=== PATIENT | male | born 1970 | race Caucasian/White ===

== ENCOUNTER → 2019-06-01 07:59 | Outpatient (CLI) | payer OTHER, SELFPAY ==
--- NOTE | 2019-06-01 | DI.MRI.S_ITS ---
PROCEDURE: MR KNEE LT W CON INDICATIONS: Unspecified internal derangement of left knee TECHNIQUE: After the administration of 50 mL of dilute intra-articular Gadolinium contrast, sagittal T1 spin echo with fat saturation and PD fast spin echo with fat saturation, coronal T1 spin echo with and without fat saturation, coronal T2 fast spin echo with fat saturation, axial PD fast spin echo with fat saturation through the knee. COMPARISON: None. FINDINGS: Image quality: Excellent. Menisci: There is a horizontally oriented longitudinal tear in the posterior horn of the medial meniscus involving the inferior articular surface. The lateral meniscus and meniscal root ligaments appear intact. Cruciate ligaments: The anterior and posterior cruciate ligaments appear intact. Medial structures: The medial collateral ligament appears intact. The semimembranosus tendon insertions, and meniscocapsular junction appear intact. Visualized portions of the pes anserinus tendons appear within normal limits without discrete bursal fluid collections. Lateral structures: The lateral collateral ligament, long and short heads of the biceps femoris tendon appear intact. The popliteus tendon appears intact. Iliotibial band appears normal. Anterior structures: The quadriceps and patellar tendons appear intact. Patellar alignment is normal. No femoral trochlear dysplasia or ventral trochlear prominence. No edema in the infrapatellar fat pad. Bone and cartilage: No bone marrow contusions or fractures. There is mild cartilage thinning in the patellofemoral compartment predominantly involving the patella which demonstrates superficial chondral fraying as well as mild fissuring superiorly associated with subchondral edema along the median ridge of the patella. In the medial compartment, there is mild extending with superficial chondral fraying. In the lateral compartment, the articular cartilage appears preserved in thickness. Joint space: No Costa's cyst. Normal appearing synovial plicae are incidentally noted. No intra-articular bodies. IMPRESSION: 1. Horizontally oriented longitudinal tear in the posterior horn of the medial meniscus. 2. 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 Dictated by: Shane Almazna M.D. on 06/01/2019 at 10:30 Approved by: Shane Almazan M.D. on 06/01/2019 at 10:36
--- NOTE | 2019-06-01 | DI.RAD.S_ITS ---
PROCEDURE: FL KNEE INJECTION MR/CT LT COMPARISON: [facility], MR, MR KNEE LT W CON, 06/01/2019, 9:33. INDICATIONS: Unspecified internal derangement of left knee FINDINGS: Successful injection of a dilute gadolinium/saline solution into the left knee joint for subsequent MR arthrography. IMPRESSION: Successful nature injection for MR arthrography. Dictated by: Leno Harman M.D. on 06/01/2019 at 10:23 Approved by: Leno Harman M.D. on 06/01/2019 at 10:24
== END ==
PROVIDERS: Visit Provider Orthopaedic Surgery
DX: S83.242A Other tear of medial meniscus, current injury, left knee, initial encounter (principal); M17.12 Unilateral primary osteoarthritis, left knee; M22.42 Chondromalacia patellae, left knee
CPT/HCPCS: 27369; 73722; 77002